=== PATIENT | female | born 1990 | race African-American/Black ===

== ENCOUNTER 2017-04-13 19:25 | Emergency (ER) | payer MEDICAID ==
[~2017-04-13] VITALS: Ht 157.5 cm; Wt 65.0 kg
[2017-04-13 19:27] VITALS: BP 118/68; PULSE 83; RESP 16; TEMP 98.6; O2SAT 98
--- NOTE | 2017-04-13 20:46 | PD ---
HPI Chief Complaint: Cold / Flu Symptoms Time Seen by Provider: 20:38 Travel History International Travel<30 days: No Contact w/Intl Traveler<30days: No Traveled to known affect area: No History of Present Illness HPI 27-year-old female here for evaluation of upper respiratory symptoms including cough, sore throat, congestion. The patient states that the symptoms of it going on for last couple of days, however today she had about 5 episodes of vomiting with coughing. She denies abdominal pain. Emesis was clear. Cough is nonproductive. She is having a mild sore throat. She has a 1-year-old child at home that was diagnosed with RSV last week. She denies fevers or chills. [facility] Past Medical History Medical History: Denies Significant Hx ?: Not Past Surgical History Surgical History: No Previous Surgery Social History Alcohol Use: No Tobacco Use: No Substance Use: No Allergies-Medications (Allergen,Severity, Reaction): Coded Allergies: No Known Allergies (Verified Allergy, Unknown, 04/13/17) Review of Systems Except as stated in HPI: all other systems reviewed are Neg Physical Exam Narrative GENERAL: Well-developed, well-nourished, comfortable, no apparent distress. SKIN: Focused skin assessment warm/dry. HEAD: Atraumatic. Normocephalic. EYES: Pupils equal and round. No scleral icterus. No injection or drainage. ENT: No nasal bleeding or discharge. Mucous membranes pink and moist. Pharynx with mild erythema without exudates. Uvula is midline. No drooling or stridor. No trismus. Normal phonation. NECK: Trachea midline. No JVD. CARDIOVASCULAR: Regular rate and rhythm. No murmur appreciated. RESPIRATORY: No accessory muscle use. Clear to auscultation. Breath sounds equal bilaterally. GASTROINTESTINAL: Abdomen soft, non-tender, nondistended. MUSCULOSKELETAL: No obvious deformities. No clubbing. No cyanosis. No edema. NEUROLOGICAL: Awake and alert. No obvious cranial nerve deficits. Motor grossly within normal limits. Normal speech. PSYCHIATRIC: Appropriate mood and affect; insight and judgment normal. Data Data Last Documented VS Vital Signs Date Time Temp Pulse Resp B/P (MAP) Pulse Ox O2 Delivery O2 Flow Rate FiO2 04/13/17 19:27 98.6 83 16 118/68 (85) 98 Room Air Orders Orders Group A Rapid Strep Screen (04/13/17 20:41) Influenzae A/B Antigen (04/13/17 20:41) Strep Culture (Group A) (04/13/17 20:40) MDM Medical Decision Making Medical Screen Exam Complete: Yes Emergency Medical Condition: Yes Differential Diagnosis URI, viral illness, pharyngitis, influenza Narrative Course Vital signs are within normal limits. The patient is overall very well-appearing. She has no abdominal tenderness. Mucous members are pink and moist. She is likely suffering from a viral illness. I will check her for influenza and strep pharyngitis. She will also be given Gatorade here as a PO challenge. I do not believe that labs or imaging studies are necessary in her evaluation. Influenza and group A strep are negative. Patient tolerated Gatorade in the emergency department. Patient is resting comfortably. She states she would like a note to take off of work tomorrow. She is stable for discharge home with further workup as an outpatient with a primary care physician this week. She was informed on when to return to the emergency department. She verbalizes understanding and agreement with plan. Diagnosis Primary Impression: Cough Additional Impression: Sore throat Referrals: Primary Care Physician 3 days Additional Instructions: Follow-up with a primary care physician this week. Return to the emergency department for worsening symptoms or any other concerns. Disposition: 01 DISCHARGE HOME Condition: Stable Jay Munguia MD Apr 13, 2017 20:46
== END 2017-04-13 22:48 | disposition home or self-care (01) ==
LOC: NEPD 19:25
DX: R05 Cough (principal); J02.9 Acute pharyngitis, unspecified; R11.10 Vomiting, unspecified
CPT/HCPCS: 87081; 87804; 87880; 99282